=== PATIENT | female | born 1945 | race Caucasian/White ===

== ENCOUNTER → 2023-06-27 09:34 | Outpatient (BNVA) | payer OTHER, SELFPAY | PROVIDERS: PCP Nurse Practitioner Family; Referring Provider Nurse Practitioner Family; Visit Provider Psychiatry & Neurology Neurology ==

== ENCOUNTER 2023-07-10 11:18 | Outpatient (CLI) | payer OTHER, SELFPAY ==
--- NOTE | 2023-07-10 10:45 | DI.RAD_ITS ---
Exam(s) XR WRIST RT COMPLETE EXAM: XR WRIST RT COMPLETE CLINICAL HISTORY: eval R wrist frx malunion. TECHNIQUE: 2D digital imaging was performed of the right wrist. Three views were obtained. PA, lat eral and oblique views were obtained. COMPARISON: No exams were available for comparison FINDINGS: BONES: No acute fracture is present. No bony destructive lesion is seen. There is an old healed dista l right radial fracture deformity. JOINTS: The carpal bones are normally aligned. SOFT TISSUE: Normal. IMPRESSION: Old healed distal right radial fracture deformity. No acute fracture or dislocation. DATA REPOSITORY: RADIATION DOSE DELIVERED:
== END 2023-07-10 11:19 | disposition home or self-care (01) ==
LOC: DIORS 11:18
PROVIDERS: PCP Nurse Practitioner Family; Referring Provider Nurse Practitioner Family; Visit Provider Student in an Organized Health Care Education/Training Program
DX: S52.501D Unspecified fracture of the lower end of right radius, subsequent encounter for closed fracture with routine healing (principal); X58.XXXD Exposure to other specified factors, subsequent encounter
CPT/HCPCS: 73110

== ENCOUNTER → 2023-07-24 04:44 | Outpatient (CLI) | payer OTHER, SELFPAY ==
--- NOTE | 2023-07-24 07:30 | DI.MRI_ITS ---
Exam(s) MR UPPER JOINT RT WO EXAM: MR UPPER JOINT RT WO CLINICAL HISTORY: pain,MASS OF RT WRIST,R22.31,M70.11,BURSITIS RT WRIST. TECHNIQUE: Multiplanar multisequence MRI was performed. COMPARISON: Plain films 10 July 2023 FINDINGS: Exam is limited by motion. BONES: There is an old healed distal radial fracture. There is positive ulnar variance. There is no evidence of acute fracture or marrow edema. JOINTS: The radiocarpal joint is unremarkable. The carpal joints are unremarkable. There is fluid in distal radial ulnar joint. TENDONS: Flexors: Unremarkable. Extensors: Unremarkable. MUSCLES: Unremarkable. Carpal tunnel: Some fluid and intermediate signal within carpal tunnel. Tendons appear intact. Medi an nerve does not appear enlarged. SOFT TISSUES: Unremarkable. LIGAMENTS: Unremarkable. TRIANGULAR FIBROCARTILAGE: The grossly intact. IMPRESSION: Fluid within carpal tunnel this is a carpal tunnel center. No evidence of mass or ganglion.. Old healed distal radial fracture. DATA REPOSITORY:
== END ==
PROVIDERS: PCP Nurse Practitioner Family; Visit Provider Student in an Organized Health Care Education/Training Program
DX: M70.11 Bursitis, right hand (principal); R22.31 Localized swelling, mass and lump, right upper limb
CPT/HCPCS: 73221